=== PATIENT | male | born 1965 | race Caucasian/White ===

== ENCOUNTER 2017-02-06 16:11 | Emergency (ER) | payer SELFPAY ==
[2017-02-06 16:28] VITALS: TEMP 98.9
[2017-02-06] MEDS ORDERED: HYDROcodone 10MG/APAP 325MG 1 EA TAB PO ONE (16:41)
[2017-02-06] MEDS ORDERED: fentaNYL PATCH 25 MCG/HR 1 EA PATCH TD ONE (18:06)
--- NOTE | 2017-02-06 18:26 | ED.PDOC ---
History of Present Illness - General Chief Complaint: Back Pain or Injury Stated Complaint: Back pain/spasms Time Seen by Provider: 02/06/17 16:18 Source: patient Exam Limitations: no limitations - History of Present Illness Initial Comments: The patient is a 52-year-old male presenting to the emergency room secondary to worsening symptoms over the last 24 hours. The patient has had some nausea, some diaphoresis, some shaking, some mild headache, and exacerbation of his long-standing symptoms since he had his record a few months ago. Apparently over the last few days he hasprimary doctors at his rehabilitation facility have taken him off of allprimary opiate medications and even changed his muscle relaxer. He was apparently on hydrocodone, oxycodone and 100 g fentanyl patch up until a few days ago. These appear to have all been discontinued within the last few days. Additionally his Zanaflex was changed to Flexeril. The patient is reporting diffuse muscle spasms and body aches. The muscle spasms that he is showing me however are not involuntary they are very much put on by the patient in an attempt to get more medications. I do not doubt however that he is having some involuntary muscle spasms and increased pain given hisrather sudden reduction in pain medications. The patient is diaphoretic and does have a mild tremor that can go along withwithdrawal. Timing/Duration: 24 hours Severity: moderate Improving Factors: medication Worsening Factors: nothing Associated Symptoms: diaphoresis, headaches, loss of appetite, malaise, nausea/ vomiting Allergies/Adverse Reactions: Allergies Bee Venom Allergy (Verified 02/20/15 20:28) Home Medications: Ambulatory Orders Acetaminophen W/ Codeine [Tylenol W/ CODEINE #3] 1 ea PO Q6H #30 02/20/15 Amoxicillin & Pot Clavulanate [Augmentin] 875 mg PO BID #14 tab 02/20/15 Methylprednisolone [Medrol Dose Erasmo] 4 mg PO QAM #1 tab 02/20/15 Naproxen [Naprosyn] 500 mg PO BID #30 tab 02/20/15 Sucralfate [Carafate] 1 gm DAILY 02/20/15 Review of Systems - Review of Systems Constitutional: States: malaise, weakness EENTM: States: no symptoms reported Respiratory: States: no symptoms reported Cardiology: States: no symptoms reported Gastrointestinal/Abdominal: States: abdominal pain, nausea Genitourinary: States: no symptoms reported Musculoskeletal: States: back pain, joint pain, muscle pain, muscle stiffness, neck pain Skin: States: see HPI Neurological: States: anxiety, depressed, tingling, tremors, weakness Endocrine: States: excessive sweating All other Systems: No Change from Baseline Past Medical History (General) - Patient Medical History Hx Seizures: No Hx Stroke: No Hx Dementia: No Hx Asthma: No Hx of COPD: No Hx Cardiac Disorders: No Hx Congestive Heart Failure: No Hx Pacemaker: No Hx Hypertension: No Hx Thyroid Disease: No Hx Diabetes: No Hx Gastroesophageal Reflux: No Hx Renal Disease: No Hx Cancer: No Hx of HIV: No Hx Hepatitis C: No Hx MRSA: No Surgical History: other - Vaccination History Hx Tetanus, Diphtheria Vaccination: No - Social History Hx Tobacco Use: No Hx Alcohol Use: No Hx Substance Use: No Hx Substance Use Treatment: No Hx Depression: No Hx Physical Abuse: No Hx Emotional Abuse: No Hx Suspected Abuse: No - Activities of Daily Living Intermediate/Assisted Living (if applicable):: [facility] Family Medical History - Family History Mother Family History: Unknown Living Status: Still Living Physical Exam - Physical Exam General Appearance: Alert, Restless, Other - he is obviously uncomfortable Eye Exam: bilateral normal Ears, Nose, Throat: hearing grossly normal, normal ENT inspection, normal pharynx Neck: supple Respiratory: lungs clear, normal breath sounds, no respiratory distress, no accessory muscle use Cardiovascular/Chest: normal peripheral pulses, no edema, tachycardia - mildly Peripheral Pulses: radial,right: 2+, radial,left: 2+, dorsalis pedis,right: 2+, dorsalis pedis,left: 2+ Gastrointestinal/Abdominal: non tender - surgical scars are noted, soft Rectal Exam: deferred Extremity: normal capillary refill, other - chronic changes from trauma are present. Neurologic: shake backboard notcher II-XII nml as tested, alert, oriented x 3, other - the patient is very anxious Skin Exam: diaphoresis Comments: Vital Signs - 24 hr 02/06/17 16:19 Temperature 98.9 F Pulse Rate [ 102 H Left Radial] Respiratory 16 Rate Blood Pressure 115/81 [Left Arm] O2 Sat by Pulse 96 Oximetry Progress - Progress Progress: 02/06/17 18:29 the patient is a 52-year-old male presenting to the emergency room with a clinical syndrome and history that is consistent with opiate withdrawal. The patient is having a 25 g fentanyl patch placed for the next 72 hours. This should help taper him down on his opiate dosage. alculating his previous opiate dosage, this should be less than a fifth of his normal daily dose, which may not be enough to control his pain but should at least prevent withdrawal symptoms. Hopefully the tramadol after that, will be enough to prevent significant withdrawal. he needs to discuss opiate withdrawal symptoms and management with his primary care doctor at the facility. Lab work is reassuring here today. He needs to follow up with his primary care doctor at the facility as soon as possible. - Results/Orders Results/Orders: Laboratory Results - last 24 hr 02/06/17 02/06/17 17:00 17:00 WBC 4.6 L Cancelled RBC 4.15 L Cancelled Hgb 12.3 L Cancelled Hct 37.2 L Cancelled MCV 89.6 Cancelled MCH 29.6 Cancelled MCHC 33.1 Cancelled RDW 14.3 Cancelled Plt Count 182 Cancelled MPV 7.9 Cancelled Absolute Neuts (auto) 3.00 Cancelled Absolute Lymphs (auto) 0.90 L Cancelled Absolute Monos (auto) 0.50 Cancelled Absolute Eos (auto) 0.20 Cancelled Absolute Basos (auto) 0.00 Cancelled Neutrophils % 64.4 Cancelled Lymphocytes % 19.8 L Cancelled Monocytes % 11.2 H Cancelled Eosinophils % 3.7 Cancelled Basophils % 0.9 Cancelled Differential Comment Cancelled RBC Morphology Cancelled PT 12.5 INR 1.110 PTT (SP) 30.3 Sodium 139 Potassium 3.6 Chloride 104 Carbon Dioxide 24 Anion Gap 14.6 BUN 10 Creatinine 0.59 L BUN/Creatinine Ratio 16.9 Random Glucose 91 Serum Osmolality 276.2 Calcium 8.4 Magnesium 1.8 Total Bilirubin 0.8 Direct Bilirubin 0.2 Indirect Bilirubin 0.6 AST 14 ALT 10 Alkaline Phosphatase 79 Creatine Kinase 35 L CK-MB (CK-2) 0.7 CK-MB (CK-2) % Not Reportable Troponin I < 0.02 Serum Total Protein 6.2 L Albumin 3.0 L Globulin Cancelled Albumin/Globulin Ratio Cancelled TSH 2.17 Departure - Departure Clinical Impression: Opiate withdrawal Disposition: Discharge to Home or Self Care Condition: Fair Departure Forms: ED Discharge - Pt. Copy, Patient Portal Self Enrollment Diet: regular diet Activity: increase activity as tolerated Referrals: Pradeep Perales III, MD [Primary Care Provider] - 1-5 Days Home Medications: Ambulatory Orders Acetaminophen W/ Codeine [Tylenol W/ CODEINE #3] 1 ea PO Q6H #30 02/20/15 Amoxicillin & Pot Clavulanate [Augmentin] 875 mg PO BID #14 tab 02/20/15 Methylprednisolone [Medrol Dose Erasmo] 4 mg PO QAM #1 tab 02/20/15 Naproxen [Naprosyn] 500 mg PO BID #30 tab 02/20/15 Sucralfate [Carafate] 1 gm DAILY 02/20/15 Additional Instructions: the patient is a 52-year-old male presenting to the emergency room with a clinical syndrome and history that is consistent with opiate withdrawal. The patient is having a 25 g fentanyl patch placed for the next 72 hours. This should help taper him down on his opiate dosage. alculating his previous opiate dosage, this should be less than a fifth of his normal daily dose, which may not be enough to control his pain but should at least prevent withdrawal symptoms. Hopefully the tramadol after that, will be enough to prevent significant withdrawal. he needs to discuss opiate withdrawal symptoms and management with his primary care doctor at the facility. Lab work is reassuring here today. He needs to follow up with his primary care doctor at the facility as soon as possible.
[2017-02-06 18:58] VITALS: BP 134/74; O2SAT 98
== END 2017-02-06 18:58 | disposition home or self-care (01) ==
LOC: ER 16:11
DX: F11.23 Opioid dependence with withdrawal (principal); Z91.030 Bee allergy status; Z79.899 Other long term (current) drug therapy

== ENCOUNTER 2017-10-25 09:24 | Emergency (ER) | payer BC, OTHER ==
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
[2017-10-25 09:55] VITALS: BP 127/84; TEMP 98.2; O2SAT 97
== END 2017-10-25 10:05 | disposition home or self-care (01) ==
LOC: ER 09:24
DX: K45.8 Other specified abdominal hernia without obstruction or gangrene (principal)